=== PATIENT | male | born 1980 | race Caucasian/White ===

== ENCOUNTER 2016-09-25 12:15 | Emergency (ER) | payer OTHER ==
[2016-09-25 12:21] VITALS: TEMP 98.3; BMI 22.2
[2016-09-25 13:18] VITALS: BP 133/82; PULSE 84
--- NOTE | 2016-09-25 14:56 | PDOC ---
History of Present Illness - General History Source: Patient Exam Limitations: No Limitations - History of Present Illness Initial Comments: 09/25/16 15:12 The patient is a 36 year old male, with no significant past medical history, who presents to the emergency department complaining of abrupt onset of bilateral flank pain since this morning. The patient describes his back pain as a soreness similar to a back strain. Patient states he possibly pulled a muscle at the gym. The patient reports his pain is exacerbated when moving around, and he cannot find a comfortable position. The patient reports associated nausea and approximately 10 emetic episodes earlier today. The patient denies any diarrhea or constipation. He reports he is dehydrated secondary to emetic episodes. The patient denies any night sweats, fever, or chills. The patient denies any recent travel or sick contacts. The patient does not report any further complaints at this time. Allergies: None reported. Past Surgical History: Appendectomy. Social History: Non-smoker. Denies alcohol or drug use. <Aaron Figueroa - Last Filed: 09/25/16 16:43> <Jazmin Logan - Last Filed: 09/27/16 12:26> - General Chief Complaint: Pain Stated Complaint: BACK/ LOWER ABD PAIN Time Seen by Provider: 09/25/16 14:53 Past History <Aaron Figueroa - Last Filed: 09/25/16 16:43> - Surgical History Appendectomy: Yes - Psycho/Social/Smoking Cessation Hx Anxiety: No Suicidal Ideation: No Smoking History: Never smoked Have you smoked in the past 12 months: No Information on smoking cessation initiated: No Hx Alcohol Use: No Drug/Substance Use Hx: No Substance Use Type: None <Jazmin Logan - Last Filed: 09/27/16 12:26> - Past Medical History Allergies/Adverse Reactions: Allergies Allergy/AdvReac Type Severity Reaction Status Date / Time No Known Allergies Allergy Verified 09/25/16 12:21 Home Medications: Ambulatory Orders Ibuprofen [Motrin -] 600 mg PO TID PRN #21 tablet 09/25/16 Oxycodone HCl/Acetaminophen [Percocet 5-325 mg Tablet] 1 tab PO Q6H PRN #12 tablet MDD 4 tabs 09/25/16 Tamsulosin HCl [Flomax] 0.4 mg PO HS #14 capsule 09/25/16 Review of Systems - Review of Systems Able to Perform ROS?: Yes Comments:: 09/25/16 15:12 GENERAL/CONSTITUTIONAL: No fever or chills. No weakness. HEAD, EYES, EARS, NOSE AND THROAT: No change in vision. No ear pain or discharge. No sore throat. CARDIOVASCULAR: No chest pain or shortness of breath. RESPIRATORY: No cough, wheezing, or hemoptysis. GASTROINTESTINAL: Yes: +nausea, +vomiting. No diarrhea or constipation. GENITOURINARY: Yes: +bilateral flank pain. No dysuria, frequency, or change in urination. MUSCULOSKELETAL: No joint or muscle swelling or pain. No neck pain. SKIN: No rash NEUROLOGIC: No headache, vertigo, loss of consciousness, or change in strength/ sensation. ENDOCRINE: No increased thirst. No abnormal weight change. HEMATOLOGIC/LYMPHATIC: No anemia, easy bleeding, or history of blood clots. ALLERGIC/IMMUNOLOGIC: No hives or skin allergy. <HenryGiomilsy - Last Filed: 09/25/16 16:43> *Physical Exam - Vital Signs Last Vital Signs Temp Pulse Resp BP Pulse Ox 98.3 F 84 18 133/82 97 09/25/16 12:20 09/25/16 13:17 09/25/16 13:17 09/25/16 13:17 09/25/16 12:20 - Physical Exam Comments: 09/25/16 15:13 GENERAL:Mild pallor. Awake, alert, and fully oriented, in no acute distress HEAD: No signs of trauma EYES: PERRLA, EOMI, sclera anicteric, conjunctiva clear ENT: Auricles normal inspection, hearing grossly normal, nares patent, oropharynx clear without exudates. Dry mucosa NECK: Normal ROM, supple, no lymphadenopathy, JVD, or masses LUNGS: Breath sounds equal, clear to auscultation bilaterally. No wheezes, and no crackles HEART: Regular rate and rhythm, normal S1 and S2, no murmurs, rubs or gallops ABDOMEN: Soft, nontender, normoactive bowel sounds. No guarding, no rebound. No masses EXTREMITIES: Normal range of motion, no edema. No clubbing or cyanosis. No cords, erythema, or tenderness NEUROLOGICAL: Cranial nerves II through XII grossly intact. Normal speech, normal gait SKIN: Warm, Dry, normal turgor, no rashes or lesions noted. <Aaron Figueroa - Last Filed: 09/25/16 16:43> - Vital Signs Last Vital Signs Temp Pulse Resp BP Pulse Ox 98.3 F 84 18 133/82 97 09/25/16 12:20 09/25/16 13:17 09/25/16 13:17 09/25/16 13:17 09/25/16 12:20 <Jazmin Logan - Last Filed: 09/27/16 12:26> ED Treatment Course - LABORATORY CBC & Chemistry Diagram: 09/25/16 15:13 09/25/16 15:13 - ADDITIONAL ORDERS Additional order review: Laboratory Results 09/25/16 15:00 Urine Color Yellow Urine Appearance Clear Urine pH 8.0 Ur Specific [place] 1.025 Urine Protein 2+ H Urine Glucose (UA) Negative Urine Ketones 1+ H Urine Blood 2+ H Urine Nitrite Negative Urine Bilirubin Negative Urine Urobilinogen Negative Ur Leukocyte Esterase Trace H Urine RBC 579 Urine WBC 6 Urine Mucus Moderate - RADIOLOGY Radiograph Interpretation: 09/25/16 16:43 EXAM: Renal Stone CT INTERPRETED BY: Dr. Jones REVIEWED BY: Dr. Logan IMPRESSION: 0.3 cm distal left ureteral calculus with resultant mild hydronephrosis. Punctate bilateral nonobstructing renal calculi. Small amount of free fluid within the lower pelvis. <Aaron Figueroa - Last Filed: 09/25/16 16:43> - LABORATORY CBC & Chemistry Diagram: 09/25/16 15:13 09/25/16 15:13 <Jazmin Logan - Last Filed: 09/27/16 12:26> Medical Decision Making - Medical Decision Making 09/25/16 17:01 Pt reassessed. Feeling much better. We discussed CT results, need for outpatient f/u. Stable for DC home. <Jazmin Logan - Last Filed: 09/27/16 12:26> *DC/Admit/Observation/Transfer - Attestations Scribe Attestion: 09/25/16 15:13 Documentation prepared by Aaron Figueroa, acting as medical secretary for Jazmin Logan MD. <Aaron Figueroa - Last Filed: 09/25/16 16:43> - Discharge Dispostion Admit: No <Jazmin Logan - Last Filed: 09/27/16 12:26> Diagnosis at time of Disposition: Kidney stone - Discharge Dispostion Disposition: HOME Condition at time of disposition: Stable - Prescriptions Prescriptions: Tamsulosin HCl [Flomax] 0.4 mg PO HS #14 capsule Ibuprofen [Motrin -] 600 mg PO TID PRN #21 tablet PRN Reason: Pain Oxycodone HCl/Acetaminophen [Percocet 5-325 mg Tablet] 1 tab PO Q6H PRN #12 tablet MDD 4 tabs PRN Reason: Severe Pain - Referrals Referrals: Senia Bravo MD [Primary Care Provider] - - Patient Instructions Printed Discharge Instructions: DI for Kidney Stones
[2016-09-25] MEDS ORDERED: KETOROLAC TROMETHAMINE 30 MG/1 ML VIAL IVPUSH ONE (14:57)
[2016-09-25] MEDS ORDERED: ONDANSETRON 4 MG/2 ML VIAL IVPUSH ONE (14:57)
[2016-09-25] MEDS ORDERED: SODIUM CHLORIDE 1,000 ML IV STA ×2 (14:57→14:58)
[2016-09-25] MEDS ORDERED: FAMOTIDINE 20 MG/50 ML IVPB 50 ML IVPB ONE ×2 (14:57→15:27)
[2016-09-25 15:07] LABS: URINE APPEARANCE CLEAR; URINE BILIRUBIN NEGATIVE (NEGATIVE); URINE BLOOD 2+ (NEGATIVE); URINE COLOR YELLOW; URINE GLUCOSE (UA) NEGATIVE (NEGATIVE); URINE KETONE 1+ (NEGATIVE); URINE NITRITE NEGATIVE (NEGATIVE); URINE UROBILINOGEN NEGATIVE E.U./dl (0.2-1.0)
[2016-09-25 15:08] LABS: URINE LEUK ESTERASE TRACE (NEGATIVE); URINE PROTEIN 2+ (NEGATIVE)
[2016-09-25 15:10] LABS: URINE MUCUS MODERATE; URINE RBC 579 /hpf (0-3); URINE WBC 6 /hpf (3-5)
[2016-09-25 15:18] LABS: BASOPHIL 0.2 % (0-2.0); MCH 30.3 pg (25.7-33.7); MCHC 34.8 g/dl (32.0-35.9); MEAN CELL VOLUME 87.1 fl (80-96); MEAN PLT VOLUME 7.8 fl (7.5-11.1); NEUTROPHILS 91.8 % (42.8-82.8); PLATELET COUNT 268 K/MM3 (134-434); RDW 13.3 % (11.9-15.9)
[2016-09-25] MEDS ORDERED: ONDANSETRON 4 MG/2 ML VIAL ONE (15:27)
[2016-09-25] MEDS ORDERED: KETOROLAC TROMETHAMINE 30 MG/1 ML VIAL ONE (15:27)
[2016-09-25 15:44] LABS: ALBUMIN 4.2 g/dl (3.4-5.0); ANION GAP 6 (8-16); CALCIUM 9.3 mg/dL (8.5-10.1); CO2 28 mmol/L (21-32); COCKROFT - GAULT 82.65; CREATININE 1.3 mg/dL (0.7-1.3); GLUCOSE,RANDOM 133 mg/dL (74-106); SGOT/AST 17 U/L (15-37); SGPT/ALT 22 U/L (12-78)
[2016-09-25 15:46] LABS: ALK PHOS 54 U/L (45-117); BILIRUBIN,TOTAL 0.8 mg/dL (0.2-1.0); TOT PROT 7.8 g/dl (6.4-8.2)
[2016-09-25] MEDS ORDERED: OXYCODONE/APAP 5/325MG COMBO TABLET PO ONE (16:49)
[2016-09-25] MEDS ORDERED: OXYCODONE/APAP 5/325MG COMBO TABLET ONE (17:04)
== END 2016-09-25 17:22 | disposition home or self-care (01) ==
LOC: JER 12:15
PROC: 3E0337Z Introduction of Electrolytic and Water Balance Substance into Peripheral Vein, Percutaneous Approach (ICD-10-PCS; principal; 2016-09-25)
PROC: 3E033GC Introduction of Other Therapeutic Substance into Peripheral Vein, Percutaneous Approach (ICD-10-PCS; 2016-09-25)
PROC: 3E0333Z Introduction of Anti-inflammatory into Peripheral Vein, Percutaneous Approach (ICD-10-PCS; 2016-09-25)
DX: N13.2 Hydronephrosis with renal and ureteral calculous obstruction (principal)
CPT/HCPCS: 36415; 74176; 80053; 81003; 81015; 83690; 85025; 96361; 96365; 96375; 99282-25

== ENCOUNTER 2016-10-25 10:01 | Day surgery (SDC) | payer OTHER ==
[2016-10-22 17:22] VITALS: BMI 20.9
[2016-10-25] MEDS ORDERED: LEVOFLOXACIN 500 MG IVPB 100 ML IVPB ONE (11:43)
[2016-10-25] MEDS ORDERED: PROMETHAZINE HCL 25 MG/1 ML VIAL IVPUSH PRN (13:10)
[2016-10-25] MEDS ORDERED: ONDANSETRON 4 MG/2 ML VIAL IVPUSH PRN (13:10)
[2016-10-25] MEDS ORDERED: oxyCODONE HCL 5 MG TABLET PO PRN (13:10)
[2016-10-25] MEDS ORDERED: MIDAZOLAM HCL 2 MG/2 ML SINGLE DOSE VIAL ONE (13:11)
[2016-10-25] MEDS ORDERED: LACTATED RINGERS SOLUTION 1,000 ML IV SCH (13:15)
[2016-10-25] MEDS ORDERED: LEVOFLOXACIN 500 MG PREMIX BAG IVPB ONE (13:28)
--- NOTE | 2016-10-25 14:19 | OP ---
Operative Note - Note: Operative Date: 10/25/16 Pre-Operative Diagnosis: left renal stone Operation: left eswl Findings: 5mm left mid-pole stone Post-Operative Diagnosis: Same as Pre-op Surgeon: Clinton Suero Anesthesia: General Operative Report Dictated: Yes
[2016-10-25] MEDS ORDERED: ONDANSETRON 4 MG/2 ML VIAL ONE (15:40)
[2016-10-25 15:59] VITALS: TEMP 97.9
[2016-10-25 18:07] VITALS: BP 127/71; PULSE 79
--- NOTE | 2016-10-26 07:23 | OP ---
DATE OF OPERATION: 10/25/2016 PREOPERATIVE DIAGNOSIS: Left renal stones. POSTOPERATIVE DIAGNOSIS: Left renal stones. PROCEDURE: Left extracorporeal shock wave lithotripsy. ATTENDING: Ace Garber MD ANESTHESIA: General. THE OPERATION WENT FOLLOWS: The patient was brought in the operating room, placed in supine position on the operating room table. Ultrasonography and fluoroscopy were performed. A 5-mm lower pole and 5-mm mid pole stones were identified in the left kidney. General anesthesia was then administered. In addition, Levaquin was given preoperatively for surgical prophylaxis. At this point, extracorporeal shock wave lithotripsy was begun, 1500 impulses at 20 joules of power were administered to each stone, 3000 impulses total were administered. No complications were noted. The patients disposition was to the recovery room. ACE GARBER M.D. [id number]
== END 2016-10-25 18:07 | disposition home or self-care (01) ==
LOC: JASU-SURG 10:01
PROVIDERS: ATTEND Urology
PROC: 0TF4XZZ Fragmentation in Left Kidney Pelvis, External Approach (ICD-10-PCS; principal; 2016-10-25 12:00)
DX: N20.0 Calculus of kidney (principal)
CPT/HCPCS: 94760

== ENCOUNTER 2016-11-08 12:04 | Day surgery (SDC) | payer OTHER ==
[2016-11-05 11:35] VITALS: BMI 20.9
[2016-11-08] MEDS ORDERED: SCOPOLAMINE HYDROBROMIDE 1 PATCH PATCH.TD72 ONE (13:58)
[2016-11-08] MEDS ORDERED: LEVOFLOXACIN 500 MG IVPB 100 ML IVPB ONE (14:26)
[2016-11-08] MEDS ORDERED: MIDAZOLAM HCL 2 MG/2 ML SINGLE DOSE VIAL ONE (14:29)
[2016-11-08] MEDS ORDERED: LEVOFLOXACIN 500 MG PREMIX BAG IVPB ONE (14:37)
[2016-11-08] MEDS ORDERED: DEXAMETHASONE SOD PHOSPHATE 4 MG/1 ML VIAL ONE (14:52)
[2016-11-08 15:57] VITALS: TEMP 98
--- NOTE | 2016-11-08 16:06 | OP ---
Operative Note - Note: Operative Date: 11/08/16 Pre-Operative Diagnosis: right renal stone Operation: right eswl Findings: 7mm right upper pole renal stone Post-Operative Diagnosis: Same as Pre-op Surgeon: Clinton Suero Anesthesia: General Operative Report Dictated: Yes
[2016-11-08] MEDS ORDERED: ONDANSETRON 4 MG/2 ML VIAL IVPUSH PRN (16:09)
[2016-11-08] MEDS ORDERED: oxyCODONE HCL 5 MG TABLET PO PRN (16:09)
[2016-11-08] MEDS ORDERED: LACTATED RINGERS SOLUTION 1,000 ML IV SCH (16:15)
[2016-11-08 17:20] VITALS: BP 116/70; PULSE 80
--- NOTE | 2016-11-09 13:27 | OP ---
DATE OF OPERATION: 11/08/2016 PREOPERATIVE DIAGNOSIS: Right renal stone. POSTOPERATIVE DIAGNOSIS: Right renal stone. PROCEDURE: Right extracorporeal shock wave lithotripsy. ATTENDING: Ace Garber MD ANESTHESIA: General. OPERATION: The patient was brought in the operating room, placed in supine position on the operating room table. Fluoroscopy and ultrasonography were performed. A 7-mm right upper pole stone was noted. At this point, general anesthesia was administered. Levaquin 500 mg was given intravenously. At this point, extracorporeal shock wave lithotripsy was performed, 2500 impulses at 17 joules of power were administered to the stone. Excellent fragmentation was noted. No complications were noted. The patient tolerated the procedure very well. ACE GARBER M.D. /[id number]
== END 2016-11-08 17:00 | disposition home or self-care (01) ==
LOC: JASU-SURG 12:04
PROVIDERS: ATTEND Urology
PROC: 0TF3XZZ Fragmentation in Right Kidney Pelvis, External Approach (ICD-10-PCS; principal; 2016-11-08 13:15)
DX: N20.0 Calculus of kidney (principal)
CPT/HCPCS: 94760